=== PATIENT | male | born 1965 | race Caucasian/White ===

== ENCOUNTER → 2017-04-04 | Outpatient (REF) ==
--- NOTE | 2017-04-04 13:35 | REP ---
Right foot four views: There are no comparisons. Mineralization and joint spaces are normal. There is a small calcaneal plantar spur. No fracture or dislocation. No calcifications or foreign bodies. Impression: Small calcaneal plantar spur. Signed by Julio Townsend MD 04/04/2017 01:26 P
== END ==
LOC: M RAD 11:05
PROVIDERS: ATTEND Physician Assistant
DX: M25.571 Pain in right ankle and joints of right foot (principal); M77.31 Calcaneal spur, right foot

== ENCOUNTER 2023-11-15 13:43 | Emergency (ER) | payer OTHER ==
[~2023-11-15] VITALS: Ht 193 cm; Wt 126.1 kg
[2023-11-15 14:08] VITALS: BP 126/70; TEMP 97.7; O2SAT 97
[2023-11-15] MEDS ORDERED: PRAZ2CAP PO (14:19)
[2023-11-15] MEDS ORDERED: GLIP10TA PO (14:19)
[2023-11-15] MEDS ORDERED: TRAZ-186 PO (14:19)
[2023-11-15] MEDS ORDERED: LOSA25TA13 PO (14:19)
[2023-11-15] MEDS ORDERED: FENO150C PO (14:19)
[2023-11-15] MEDS ORDERED: OMEP-173 PO (14:19)
[2023-11-15] MEDS ORDERED: NOXI1TAB PO (14:19)
[2023-11-15] MEDS ORDERED: ASPI81CH33 PO (14:19)
[2023-11-15] MEDS ORDERED: ARIP1TAB6 PO (14:19)
[2023-11-15] MEDS ORDERED: METF-877 PO (14:19)
[2023-11-15] MEDS ORDERED: ARIP10TA32 PO (14:19)
[2023-11-15] MEDS ORDERED: INSULANT SC (14:19)
[2023-11-15] MEDS ORDERED: LAMO100T80 PO (14:19)
[2023-11-15] MEDS ORDERED: FLUT15.820 NARES (14:19)
[2023-11-15] MEDS: GLUCAGON INJ 1MG VIAL IM STA (16:10)
== END 2023-11-15 16:59 | disposition home or self-care (01) ==
LOC: EDBD 13:43 → M ED 13:43
DX: K56.699 Other intestinal obstruction unspecified as to partial versus complete obstruction (principal); T18.128A Food in esophagus causing other injury, initial encounter; E11.9 Type 2 diabetes mellitus without complications; I10 Essential (primary) hypertension; K21.9 Gastro-esophageal reflux disease without esophagitis; F90.9 Attention-deficit hyperactivity disorder, unspecified type; F31.9 Bipolar disorder, unspecified; F43.10 Post-traumatic stress disorder, unspecified; Z79.4 Long term (current) use of insulin; Z79.811 Long term (current) use of aromatase inhibitors; Z79.82 Long term (current) use of aspirin; Z79.899 Other long term (current) drug therapy
CPT/HCPCS: 96372; 99283; J1610

== ENCOUNTER 2024-07-18 12:22 | Emergency (ER) | payer OTHER ==
[~2024-07-18] VITALS: Ht 193 cm; Wt 125.0 kg
[~2024-07-18 12:22] MED LIST: ARIP10TA63 PO; ARIP1TAB6 PO; ASPI81CH33 PO; FENO150C PO; FLUT15.820 NARES; GLIP10TA PO; INSULANT SC; LAMO100T80 PO; LOSA25TA13 PO; METF-877 PO; NOXI1TAB PO; OMEP-173 PO; PRAZ2CAP PO; TRAZ-186 PO
[2024-07-18 14:23] VITALS: BP 118/74; TEMP 98.5; O2SAT 98
== END 2024-07-18 15:44 | disposition left against medical advice (07) ==
LOC: M ED 12:22
DX: Z53.21 Procedure and treatment not carried out due to patient leaving prior to being seen by health care provider (principal)

== ENCOUNTER → 2024-09-16 | Outpatient (CLI) | payer OTHER ==
[~2024-09-16] MED LIST changes: +PROHANCE 279.3MG/ML 15ML VIAL ONE; +PROHANCE 279.3MG/ML 5ML VIAL ONE
== END ==
LOC: M PLAIMG 10:53
PROVIDERS: ATTEND Physician Assistant Medical
DX: D36.10 Benign neoplasm of peripheral nerves and autonomic nervous system, unspecified (principal)
CPT/HCPCS: 70553; A9576